=== PATIENT | male | born 1955 | race Caucasian/White ===

== ENCOUNTER 2017-04-23 13:56 | Emergency (ER) | payer BC, OTHER ==
[2017-04-23 16:48] VITALS: BP 115/69
--- NOTE | 2017-04-23 17:10 | UC ---
Ear Complaint HPI - HPI Summary HPI Summary: PT IS C/O A "RINGING" IN HIS l EAR FOR ABOUT 3 WEEKS. HE DENIES ANY NEW MEDICATIONS OR CHANGES IN MEDICATION PRIOR TO ONSET AND HAS HAD NO INJURY. HE DENIES HEADACHE, VISUAL CHANGES OR BALANCE ISSUE. HE ADMITS TO SOME HEARING LOSS WHICH IS CHRONIC AND UNCHANGED. [facility] WITH [facility]MENT[facility] WITH NO RELIEF. - History of Current Complaint Chief Complaint: UCEar Stated Complaint: RINGING IN EAR - BILATERAL Time Seen by Provider: 04/23/17 16:53 Hx Obtained From: Patient, Family/Thermospray Operator Onset/Duration: Sudden Onset Severity Initially: Moderate Severity Currently: Moderate Pain Intensity: 0 Aggravating Factors: Nothing Alleviating Factors: Nothing Associated Signs/Symptoms: Positive: Hearing Loss. Negative: Discharge, Foreign Body Sensation, Trauma to Ear, URI Symptoms - Allergies/Home Medications Allergies/Adverse Reactions: Allergies Allergy/AdvReac Type Severity Reaction Status Date / Time ibuprofen [From Motrin] AdvReac stomach Verified 04/23/17 16:49 ulcer Home Medications: Home Medications ARIPiprazole TAB* [Abilify 20 MG TAB*] 10 mg PO DAILY 04/23/17 [History Confirmed 04/23/17] Aspirin Low Dose CHEW TAB* [Aspirin Low Dose TAB*] 81 mg PO DAILY 04/23/17 [ History Confirmed 04/23/17] Atenolol TAB* [Tenormin TAB* 25 MG] 25 mg PO DAILY 04/23/17 [History Confirmed 04/23/17] Atorvastatin* [Lipitor*] 20 mg PO QPM 04/23/17 [History Confirmed 04/23/17] Benztropine TAB* [Cogentin TAB*] 0.5 mg PO DAILY 04/23/17 [History Confirmed ] Clopidogrel TAB* [Plavix TAB*] 75 mg PO DAILY 04/23/17 [History Confirmed ] Isosorbide Mononitrate ER TAB* [Imdur ER TAB*] 30 mg PO DAILY 04/23/17 [History Confirmed 04/23/17] Omeprazole CAP* [Prilosec CAP* 20 MG] 20 mg PO BID 04/23/17 [History Confirmed 04/23/17] Prazosin CAP* [Minipress CAP*] 2 mg PO BEDTIME 04/23/17 [History Confirmed 04/23] Ranolazine (NF) [Ranexa (NF)] 500 mg PO BID 04/23/17 [History Confirmed 04/23/17 ] Venlafaxine ER (NF) [Effexor ER (NF)] 150 mg PO DAILY 04/23/17 [History Confirmed 04/23/17] PMH/Surg Hx/FS Hx/Imm Hx Cardiovascular History: Hypertension, Myocardial Infarction GI/ History: Gastroesophageal Reflux Psychological History: Depression - Surgical History Surgical History: Yes Surgery Procedure, Year, and Place: cardiac stent and stent in both legs. bilat elbows. left knee - Social History Lives: With Family Alcohol Use: None Substance Use Type: None Smoking Status (MU): Never Smoked Tobacco Review of Systems Constitutional: Negative Skin: Negative Eyes: Negative ENT: Negative Respiratory: Negative Cardiovascular: Negative Gastrointestinal: Negative Genitourinary: Negative Motor: Negative Neurovascular: Negative Musculoskeletal: Negative Neurological: Negative Psychological: Negative Is Patient Immunocompromised?: No All Other Systems Reviewed And Are Negative: Yes Physical Exam Triage Information Reviewed: Yes Appearance: Well-Appearing Vital Signs: Initial Vital Signs Temp 98.1 F 04/23/17 16:44 Pulse 65 04/23/17 16:44 Resp 16 04/23/17 16:44 BP 115/69 04/23/17 16:44 Pulse Ox 99 04/23/17 16:44 Eye Exam: Normal ENT: Positive: Hearing grossly normal, Pharynx normal, TMs normal. Negative: Nasal congestion, Nasal drainage Neck: Positive: Supple, Nontender, No Lymphadenopathy Respiratory: Positive: Lungs clear, Normal breath sounds, No respiratory distress Cardiovascular: Positive: RRR, No Murmur Abdomen Description: Positive: Nontender, No Organomegaly, Soft Bowel Sounds: Positive: Present Neurological: Positive: Alert, Other: - CN grossly intact. s/v/m intact x4. Steady gait. Psychological Exam: Normal Psychological: Positive: Normal Response To Family Skin Exam: Normal Ear Complaint Course/Dx - Course Course Of Treatment: Subjective ringing in L ear x 3 weeks with no injury, zepeda, neuro deficits or signs of infection. will refer to ent. pt requesting Dr Hylton where they have had care in the past. - Differential Dx/Diagnosis Provider Diagnoses: Tinnitus Discharge - Discharge Plan Condition: Stable Disposition: HOME Patient Education Materials: Tinnitus (ED) Referrals: Mickey Prescott PA [Primary Care Provider] - If Needed Yaron Hylton MD [Medical Doctor] - As Soon As Possible Additional Instructions: CALL YOUR ENT, DR HYLTON WEDNESDAY FOR FOLLOW UP. GO TO ER FOR ANY CHANGES OR WORSENING
== END 2017-04-23 17:24 | disposition home or self-care (01) ==
LOC: UCCORT 13:56
DX: H93.13 Tinnitus, bilateral (principal); I25.2 Old myocardial infarction; K21.9 Gastro-esophageal reflux disease without esophagitis; I10 Essential (primary) hypertension; F32.9 Major depressive disorder, single episode, unspecified; Z95.5 Presence of coronary angioplasty implant and graft
CPT/HCPCS: 99211; G0463